=== PATIENT | male | born 1990 | race Caucasian/White ===

== ENCOUNTER 2018-03-16 06:58 | Outpatient (CLI) | payer BC ==
--- NOTE | 2018-03-16 08:50 | ULT ---
GALLBLADDER ULTRASOUND: HISTORY: Followup of gallbladder polyps. FINDINGS: Comparison is made with the exam dated 02/12/2015. The liver demonstrates homogeneous echotexture without focal mass or intrahepatic ductal dilatation. Multiple gallbladder polyps are again seen, the largest measuring up to 5 mm. No gallbladder wall t hickening, cholelithiasis, or pericholecystic fluid is identified. The common duct measures 2 mm in diameter. The pancreas and right kidney are normal. IMPRESSION: Gallbladder polyps measuring up to 5 mm. POS: OFF
== END 2018-03-16 06:59 | disposition home or self-care (01) ==
LOC: SCSULT 06:58
PROVIDERS: ATTEND Internal Medicine Gastroenterology
DX: K85.90 Acute pancreatitis without necrosis or infection, unspecified (principal); K82.4 Cholesterolosis of gallbladder
CPT/HCPCS: 76705

== ENCOUNTER 2018-05-26 16:06 | Outpatient (CLI) | payer BC ==
--- NOTE | 2018-05-26 17:08 | CT ---
CT TEMPORAL BONES NONCONTRAST: 05/26/18 HISTORY: 27-year-old male. H72.91, unspecified perforation of tympanic membrane, right ear. H90.11, conductive hearing loss, unilateral, right ear, with unrestricted hearing on the contralatera l side. Suspected cholesteatoma. COMPARISON: None. FINDINGS: The bilateral middle ear cavities and mastoid antra are clear. There is partial opacification of a fe w right posterior inferior mastoid air cells. The rest of the right mastoid air cells, and all of the left mastoid air cells, are clear. The scutum is intact bilaterally. The left tegmen tympani is very thin, and it is difficult to evaluate for dehiscence on the left. No dehiscence of the right tegmen tympani. Bone over bilateral superior semicircular canals is very thin, making it difficult to rule o ut dehiscence. Bilateral internal auditory canals, cochleae, vestibules, vestibular aqueducts, facial nerve canals, carotid canals, and jugular bulbs, have normal morphology. The ossicles have normal mo rphology, with no displacement or erosions. No otosclerosis. IMPRESSION: 1. No cholesteatoma. 2. No definite pathology identified. POS: TPC
== END 2018-05-26 16:07 | disposition home or self-care (01) ==
LOC: SCSCT 16:06
PROVIDERS: ATTEND Otolaryngology Plastic Surgery within the Head & Neck
DX: H90.11 Conductive hearing loss, unilateral, right ear, with unrestricted hearing on the contralateral side (principal); H72.91 Unspecified perforation of tympanic membrane, right ear
CPT/HCPCS: 70480